=== PATIENT | female | born 1985 | race Caucasian/White ===

== ENCOUNTER 2022-12-24 13:13 | Emergency (ER) | payer OTHER ==
[2022-12-24 13:28] VITALS: BP 104/66; PULSE 85; RESP 18; TEMP 98; BMI 26.4
[2022-12-24] MEDS ORDERED: ACETAMINOPHEN 1000 MG/100 ML BAG IVPB ONE (15:11)
[2022-12-24] MEDS ORDERED: METOCLOPRAMIDE HCL INJECTION 10 MG/2 ML VIAL IVPUSH ONE (15:11)
[2022-12-24] MEDS ORDERED: SODIUM CHLORIDE 1,000 ML IV SCH (15:15)
[2022-12-24] MEDS ORDERED: METOCLOPRAMIDE HCL INJECTION 10 MG/2 ML VIAL ONE (15:20)
[2022-12-24] MEDS ORDERED: ACETAMINOPHEN INJECTION 100 ML IVPB ONE (15:21)
[2022-12-24] MEDS ORDERED: SODIUM CHLORIDE 1,000 ML IV ONE ×2 (15:33→15:34)
[2022-12-24 15:34] LABS: BASO % 0.3 % (0-2.0); EOS % 0.2 % (0-4.5); HEMATOCRIT 39.9 % (32.4-45.2); HEMOGLOBIN 13.3 GM/dL (10.7-15.3); LYMPH % 18.5 % (8-40); MCH 28.2 pg (25.7-33.7); MCHC 33.2 g/dl (32.0-36.0); MEAN CELL VOLUME 84.8 fl (80-96); MEAN PLT VOLUME 7.2 fl (7.5-11.1); PLATELET COUNT 354 10^3/uL (134-434); RBC 4.71 M/mm3 (3.60-5.2); RDW 15.4 % (11.6-15.6); WHITE BLOOD COUNT 7.7 K/mm3 (4.0-10.0)
[2022-12-24 15:45] LABS: CALCIUM 9.5 mg/dL (8.5-10.1); MAGNESIUM 2.1 mg/dL (1.8-2.4)
[2022-12-24 15:48] LABS: CREATININE 0.7 mg/dL (0.55-1.3)
[2022-12-24 15:50] LABS: TOT PROT 8.1 g/dl (6.4-8.2)
[2022-12-24 15:53] LABS: POTASSIUM 4.3 mmol/L (3.5-5.1)
[2022-12-24] MEDS ORDERED: KETOROLAC TROMETHAMINE 30 MG/1 ML VIAL IVPUSH ONE (16:11)
[2022-12-24] MEDS ORDERED: KETOROLAC TROMETHAMINE 30 MG/1 ML VIAL ONE (16:23)
== END 2022-12-24 16:41 | disposition home or self-care (01) ==
LOC: JER 13:13
PROC: 3E033NZ Introduction of Analgesics, Hypnotics, Sedatives into Peripheral Vein, Percutaneous Approach (ICD-10-PCS; principal; 2022-12-24)
PROC: 3E033GC Introduction of Other Therapeutic Substance into Peripheral Vein, Percutaneous Approach (ICD-10-PCS; 2022-12-24)
PROC: 3E0333Z Introduction of Anti-inflammatory into Peripheral Vein, Percutaneous Approach (ICD-10-PCS; 2022-12-24)
PROC: 3E033GC Introduction of Other Therapeutic Substance into Peripheral Vein, Percutaneous Approach (ICD-10-PCS; 2022-12-24)
PROC: 3E0337Z Introduction of Electrolytic and Water Balance Substance into Peripheral Vein, Percutaneous Approach (ICD-10-PCS; 2022-12-24)
DX: G43.909 Migraine, unspecified, not intractable, without status migrainosus (principal); R11.2 Nausea with vomiting, unspecified
CPT/HCPCS: 36415; 80053; 83735; 84703; 85025; 99285-25